=== PATIENT | male | born 1995 | race Two or more races ===

== ENCOUNTER 2020-09-27 17:56 | Emergency (ER) | payer MEDICAID ==
[~2020-09-27] VITALS: Ht 165.1 cm; Wt 63.5 kg
--- NOTE | 2020-09-27 18:03 | NUR ---
WOKE UP THIS AM WITH LEFT POSTERIOR HEAD PAIN + SWELLING -- UNKNOWN ETIOLOGY, DENIES RECENT FALL OR TRAUMA. RATES PAIN /. DENIES NUBNESS/TINGLING IN THE EXTREMITY. WILL CONTINUE TO MONITOR THE PATIENT.
[2020-09-27] MEDS: KETOROLAC TROMETHAMINE INJ 30 MG/ML VIAL IM ONE (19:07)
--- NOTE | 2020-09-27 19:07 | NUR ---
Patient discharged to home in stable condition. Written and verbal after care instructions given. Patient verbalizes understanding of instruction.
[2020-09-27 19:09] VITALS: BP 117/63
== END 2020-09-27 19:09 | disposition home or self-care (01) ==
LOC: ER 17:56
DX: L72.8 Other follicular cysts of the skin and subcutaneous tissue (principal); J45.909 Unspecified asthma, uncomplicated; F17.200 Nicotine dependence, unspecified, uncomplicated